=== PATIENT | male | born 1980 | race Caucasian/White ===

== ENCOUNTER 2016-02-23 12:26 | Emergency (ER) | payer OTHER ==
[2016-02-23 13:13] VITALS: BP 135/62; PULSE 65; RESP 18; TEMP 98; O2SAT 97
--- NOTE | 2016-02-23 13:45 | UCPHY ---
H & P Patient Type: Established HPI/ROS: CHIEF COMPLAINT: Cough HISTORY OF PRESENT ILLNESS: complains of 4 days history of cough, sinus congestion and upper respiratory infection type complaints. Minimal headache. No neck pain or stiffness. No chest pain. Some body aches. No fever or chills. No abdominal pain, nausea or vomiting. No urinary complaints. Cough was mild at 1st but has steadily worsened. Associated with some sinus congestion. Has been taking [id number] medications with little improvement. No comorbidities. No other associated complaints or modifying factors. REVIEW OF SYSTEMS: Ten systems reviewed and are negative unless otherwise noted in the HPI EXAMINATION General Appearance: Alert, no distress Head: normocephalic, atraumatic Eyes: Pupils equal and round, no conjunctival pallor or injection ENT, Mouth: Mucous membranes moist Neck: Normal inspection, supple, non-tender Respiratory: Mild, scattered rhonchi. No consolidation. No distress or retractions Cardiovascular: Regular rate and rhythm Back: non-tender, no bony abnormalities Neurological: A&O, nonfocal, normal gait Skin: Warm and dry, no rash Extremities: no pedal edema MDM: Cough that is likely bronchitis. Exam is well within normal limits. Vital signs are stable. There is no consolidation on examination that would suggest pneumonia. He is a nonsmoker. No evidence of influenza by history or examination. Discharged home with medications as prescribed as well as over-the- counter medications including anti-inflammatories. We did discuss follow-up with primary care physician as well as emergency department precautions as needed. Smoking Status: Never smoked Constitutional: Initial Vital Signs Temperature (C) 98 F 02/23/16 13:09 Heart Rate 65 02/23/16 13:09 Respiratory Rate 18 02/23/16 13:09 Blood Pressure 135/62 H 02/23/16 13:09 O2 Sat (%) 97 02/23/16 13:09 O2 Delivery Mode Room Air Allergies/Adverse Reactions: No Known Allergies Allergy (Verified 04/04/14 14:05) Home Medications: Medication Instructions Recorded Guaifenesin/Codeine Phosphate 10 ml PO Q6-8PRN PRN #240 liquid 02/23/16 [Codeine-Guaifen 10-100 mg/5 ml] predniSONE 60 mg PO DAILY #15 tab 02/23/16 Departure - Departure Disposition: Home, Routine, Self-Care Clinical Impression: Acute bronchitis Qualifiers: Bronchitis organism: unspecified organism Qualifier Code: (J20.9) Acute bronchitis, unspecified Condition: Good Instructions: Acute Bronchitis (ED) Additional Instructions: Follow-up with primary care physician as discussed. Return to clinic for no improvement or worsening symptoms. Prescriptions: Guaifenesin/Codeine Phosphate [Codeine-Guaifen 10-100 mg/5 ml] 10 ml PO Q6-8PRN PRN #240 liquid PRN Reason: Cough predniSONE 60 mg PO DAILY #15 tab - PQRS PQRS Measurement: not applicable
== END 2016-02-23 13:50 | disposition home or self-care (01) ==
LOC: CED 12:26
DX: J20.9 Acute bronchitis, unspecified (principal)
CPT/HCPCS: 99214-PO; G0463-PO

== ENCOUNTER 2016-11-15 21:20 | Emergency (ER) | payer OTHER ==
--- NOTE | 2016-11-15 21:23 | EDPHY ---
H & P HPI/ROS: HPI CHIEF COMPLAINT: Medication reaction, facial pain HISTORY OF PRESENT ILLNESS: This patient very pleasant 36-year-old male otherwise healthy no significant medical history presents to the emergency room with erythema swelling and pain to his face. He states for the past 4-5 weeks he has been suffering from what is believed to be a dermatitis to his face. He seen a hammer mill operator approximately 4 weeks ago and placed on a short course of doxycycline which really did not help. He then followed up with his primary care doctor 2-3 days ago and started on Bactrim. Additionally he was given muciprocin cream and another cream by his hammer mill operator. Tonight he placed the Bactroban cream on his face as well as the other cream and began to immediately have severe burning to his face and worsening redness and swelling. Decided come the emergency room as he has a great discomfort on his face. He did call his hammer mill operator who recommend that he wash the medication off of his face warm soapy water and we convenience with a hammer mill operator in the morning. However due to discomfort he decided come to the emergency room. Upon arrival to the emergency room he appears well nontoxic he does have significant erythema to his face that appears to be dermatitis. Inflamed. There is no oropharynx or airway swelling. No stridor no trouble breathing. No spreading of this rash. His main complaint is discomfort. Burning sensation to his face. Past Medical History: No significant medical history Past Surgical History: No significant surgical history Social History: Denies daily use of drugs alcohol tobacco products. Family History: Noncontributory ROS REVIEW OF SYSTEMS: A comprehensive 10 point review of systems is otherwise negative aside from elements mentioned in the history of present illness. Exam Constitutional appears well nontoxic triage nursing summary reviewed, vital signs reviewed, awake/alert. Eyes normal conjunctivae and sclera, EOMI, PERRLA. HENT face there are several discrete lesions of erythema and raised papules. Appears to be dermatitis. I do not appreciate a pus. There is no abscess. moist mucus membranes, no epistaxis, neck supple/ no meningismus, no raccoon eyes. Respiratory clear to auscultation bilaterally, normal breath sounds, no respiratory distress, no wheezing. Cardiovascular rate normal, regular rhythm, no murmur, no edema, distal pulses normal. Gastrointestinal soft, non-tender, no rebound, no guarding, normal bowel sounds, no distension, no pulsatile mass. Genitourinary no CVA tenderness. Musculoskeletal no midline vertebral tenderness, full range of motion, no calf swelling, no tenderness of extremities, no meningismus, good pulses, neurovascularly intact. Skin other than his facial rash no other significant rash on exam. pink, warm , & dry, no rash, skin atraumatic. Neurologic awake, alert and oriented x 3, AAOx3, moves all 4 extremities equally, motor intact, sensory intact, CN II-XII intact, normal cerebellar, normal vision, normal speech. Psychiatric normal mood/affect. Heme/Lymph/Immune no lymphadenopathy. Differential Diagnosis: Includes but is not limited to in a particular order dermatitis, vasculitis, allergic reaction, contact dermatitis, dermatitis exacerbated by topical ointment, impetigo, strep infection, staph infection. Medical Decision Making: The patient is requesting IV establishment pain control and steroids. I believe this is completely reasonable. Plan for this patient IV establishment with IV Solu-Medrol given, IV Toradol for pain. Here he took 25 mg Benadryl prior to arrival. Will give Pepcid as well. When he gets home I do recommend he takes another 25 mg of Benadryl. Additionally I will prescribe [place] for pain control. Additionally understands follow up with his hammer mill operator tomorrow. Re-evaluation: 2246: Patient received IV Solu-Medrol here 125 mg IV fluids 1 L, IV Pepcid. Does state that he is feeling better. Additionally received 15 mg IV Toradol. He is ready to go home. I do recommend he has close follow-up with his hammer mill operator tomorrow as previously mentioned. He has a follow-up appointment tomorrow. I will give him a prescription for [place] for acute pain control, and prednisone 60 mg. I have requested that he hold the prednisone until seen by his hammer mill operator tomorrow to discuss oral prednisone. He does report to me that this initially started weeks ago with a lesion on his nose red with yellow crusting. Possible impetigo. He is currently on Bactrim. I do recommend he continues this. He did take a course of doxycycline few weeks ago that did not help. His hammer mill operator said that they may need to biopsy it. Source: Patient - Medical/Surgical History Hx Asthma: No Hx Chronic Respiratory Disease: No Other PMH: Good health - Social History Smoking Status: Never smoked Constitutional: Initial Vital Signs Heart Rate 73 11/15/16 21:33 Respiratory Rate 16 11/15/16 21:33 Blood Pressure 127/90 H 11/15/16 21:33 O2 Sat (%) 93 11/15/16 21:33 O2 Delivery Mode Room Air Allergies/Adverse Reactions: No Known Allergies Allergy (Verified 11/15/16 21:30) Home Medications: Medication Instructions Recorded Eletone 11/15/16 Hydrocodone/APAP 5/325 [[place] 1 - 2 tab PO Q4H PRN #10 tab 11/15/16 5/325] Mupirocin 2% [Bactroban 2%] 11/15/16 Pantoprazole Sodium [Protonix 40mg 11/15/16 (*)] predniSONE 60 mg PO DAILY #15 tab 11/15/16 traMADol [Ultram 50 mg (*)] 11/15/16 Medical Decision Making - Data Points Medications Given: Discontinued Medications Hydrocodone Bitart/Acetaminophen ([place] 5/325mg Prepack#6) 1 btl TAKEHOME EDNOW ONE Stop: 11/15/16 21:47 Last Admin: 11/15/16 22:08 Dose: 1 btl Famotidine (Pepcid) 20 mg IVP EDNOW ONE Stop: 11/15/16 21:41 Last Admin: 11/15/16 22:06 Dose: 20 mg Sodium Chloride (Ns) 1,000 mls @ 0 mls/hr IV ONCE ONE PRN Reason: Wide Open Stop: 11/15/16 21:41 Last Admin: 11/15/16 22:00 Dose: 1,000 mls Ketorolac Tromethamine (Toradol) 15 mg IVP EDNOW ONE Stop: 11/15/16 21:41 Last Admin: 11/15/16 22:04 Dose: 15 mg Methylprednisolone Sodium Succinate (Solu-Medrol) 125 mg IVP EDNOW ONE Stop: 11/15/16 21:41 Last Admin: 11/15/16 22:01 Dose: 125 mg Departure - Departure Disposition: Home, Routine, Self-Care Clinical Impression: Facial dermatitis, Impetigo Condition: Fair Instructions: Dermatitis (ED) Additional Instructions: 1. Please follow up with your hammer mill operator tomorrow. 2. Return to the emergency room if you have worsening symptoms questions or concerns. 3. The narcotic I prescribed you is powerful. It Can make you sleepy and nauseous. Please take it with food. Referrals: DAVIDE PARDO [Primary Care Provider] - As per Instructions Prescriptions: Hydrocodone/APAP 5/325 [[place] 5/325] 1 - 2 tab PO Q4H PRN #10 tab PRN Reason: Pain, Moderate predniSONE 60 mg PO DAILY #15 tab
[2016-11-15 21:35] VITALS: RESP 16
[2016-11-15] MEDS ORDERED: FAMOTIDINE 20 MG/2 ML SDV IVP ONE (21:40)
[2016-11-15] MEDS ORDERED: methylPREDNISolone SOD SUCC 125 MG/2 ML VIAL IVP ONE (21:40)
[2016-11-15] MEDS ORDERED: NS 1,000 ML IV ONE (21:40)
[2016-11-15] MEDS ORDERED: KETOROLAC 15 MG/1 ML SDV IVP ONE (21:40)
[2016-11-15] MEDS ORDERED: HYDROCOD/APAP 5/325 PREPACK#6 BTL TAKEHOME ONE (21:46)
[2016-11-15 23:12] VITALS: BP 128/88; PULSE 71; O2SAT 96
== END 2016-11-15 22:55 | disposition home or self-care (01) ==
LOC: CED 21:20
DX: L30.9 Dermatitis, unspecified (principal); L01.00 Impetigo, unspecified
CPT/HCPCS: 96374; J1885

== ENCOUNTER 2017-07-25 13:48 | Emergency (ER) | payer OTHER ==
[2017-07-25] MEDS ORDERED: DEXAMETHASONE 10 MG/ML VIAL IVP ONE (13:56)
[2017-07-25] MEDS ORDERED: KETOROLAC 15 MG/1 ML SDV IVP ONE (13:56)
[2017-07-25] MEDS ORDERED: HALOPERIDOL LACT 5 MG/ML INJ IVP ONE (13:56)
[2017-07-25] MEDS ORDERED: NS 1,000 ML IV ONE (13:57)
--- NOTE | 2017-07-25 14:00 | EDPHY ---
H & P Stated Complaint: migraine 2 days Time Seen by Provider: 07/25/17 13:56 HPI/ROS: Chief Complaint: Migraine headache HPI: 29-year-old male with a history migraine headaches presenting with a migraine headache which began yesterday. It is similar to his prior headaches but is worse than normal. Some nausea but no vomiting. Does have photophobia. Pain is about an 8/10. Was not able to get a lot of sleep last night woke up his headache worse this morning. No fevers or chills. No neck stiffness. No recent travel. Headache is described as throbbing in the front of his head. ROS: 10 point Review of Systems is negative except as noted in the HPI. PMH: Migraine headaches Social History: No smoking, no alcohol, no recreational drug use Family History: non-contributory Physical Exam: Gen: Awake, Alert, No Distress HEENT: Nose: no rhinorrhea Eyes: PERRLA, EOMI Mouth: Moist mucosa Neck: Supple, no JVD, no meningismus Chest: nontender, lungs clear to auscultation Heart: S1, S2 normal, no murmur Abd: Soft, non-tender, no guarding Back: no CVA tenderness, no midline tenderness Ext: no edema, non-tender Skin: no rash Neuro: CN II-XII intact, Sensation grossly intact, Strength 5/5 in bilateral upper and lower extremities - Medical/Surgical History Hx Asthma: No Hx Chronic Respiratory Disease: No Hx Diabetes: No Hx Cardiac Disease: No Hx Renal Disease: No Hx Cirrhosis: No Hx Alcoholism: No Hx HIV/AIDS: No Hx Splenectomy or Spleen Trauma: No Other PMH: migraines, GERD - Social History Smoking Status: Never smoked Constitutional: Initial Vital Signs Temperature (C) 37 C 07/25/17 13:54 Heart Rate 84 07/25/17 13:54 Respiratory Rate 16 07/25/17 13:54 Blood Pressure 132/91 H 07/25/17 13:54 O2 Sat (%) 93 07/25/17 13:54 O2 Delivery Mode Room Air Allergies/Adverse Reactions: No Known Allergies Allergy (Verified 07/25/17 13:57) Home Medications: Medication Instructions Recorded Pantoprazole Sodium [Protonix 40mg 11/15/16 (*)] Medical Decision Making ED Course/Re-evaluation: Patient is improved after IV fluids, Haldol, Decadron and Benadryl. Patient presenting with headache. There are no red flags for acute infection or bleed. He is improved after medications here. Will discharge with follow- up with primary care physician, return for any concerns. - Data Points Medications Given: Discontinued Medications Dexamethasone (Decadron Injection) 10 mg IVP EDNOW ONE Stop: 07/25/17 13:57 Last Admin: 07/25/17 14:29 Dose: 10 mg Diphenhydramine HCl (Benadryl Injection) 50 mg IVP EDNOW ONE Stop: 07/25/17 13:57 Last Admin: 07/25/17 14:29 Dose: 50 mg Haloperidol Lactate (Haldol Injection) 2.5 mg IVP EDNOW ONE Stop: 07/25/17 13:57 Last Admin: 07/25/17 14:29 Dose: 2.5 mg Sodium Chloride (Ns) 1,000 mls @ 0 mls/hr IV ONCE ONE; Wide Open PRN Reason: Protocol Stop: 07/25/17 13:58 Last Admin: 07/25/17 14:28 Dose: 1,000 mls Ketorolac Tromethamine (Toradol) 15 mg IVP EDNOW ONE Stop: 07/25/17 13:57 Last Admin: 07/25/17 14:30 Dose: Not Given Departure - Departure Disposition: Home, Routine, Self-Care Clinical Impression: Migraine headache Condition: Good Instructions: Migraine Headache (ED) Additional Instructions: Follow up with her primary care physician in 2-3 days for further evaluation. Return to the emergency department for worsening headache, fevers or chills, nausea, vomiting, or any other concerns. Referrals: DANIAL KRAUSE [Other] - As per Instructions
[2017-07-25 16:31] VITALS: BP 117/94
== END 2017-07-25 17:02 | disposition home or self-care (01) ==
LOC: CED 13:48
DX: G43.909 Migraine, unspecified, not intractable, without status migrainosus (principal)
CPT/HCPCS: 96374; J1100; J1200; J1630